=== PATIENT | female | born 1960 | race Caucasian/White ===

== ENCOUNTER 2019-11-24 11:50 | Outpatient (CLI) | payer MEDICARE, MEDICAID, SELFPAY ==
--- NOTE | ~2019-11-24 | CT_ITS ---
EXAMINATION: CT abdomen pelvis wo con EXAM DATE: 11/24/2019 12:13 INDICATION: Low abdominal pain. TECHNIQUE: Spiral CT of the abdomen and pelvis was performed without contrast. Axial, coronal and sag ittal images were reviewed. The dose-length product (DLP) for this examination was 1410.29 mGy-cm. The exposure was tailored according to patient size (auto mA exposure control), and iterative reconst ruction (ASIR) was used as additional dose reduction technique. There is no prior study for comparis on. FINDINGS: There is a left inferior calyceal 7 mm stone, right inferior calyceal 5 mm stone, additiona l couple of punctate other right kidney stones. Regions of bilateral renal cortical scarring and mild to moderate overall renal atrophy. Possible There is mild nonspecific fat stranding in the right presacral space of uncertain chronicity. The anupam lizette is anteverted and morphologically normal. The bladder is unremarkable. The liver, spleen, adre nal glands and pancreas are unremarkable. There are cholecystectomy clips. There is no retroperiton eal or pelvic lymphadenopathy. The appendix is not positively visualized. There is no pericecal inflammatory change to suggest appe ndicitis. There is small to moderate-sized gastroesophageal hiatal hernia. There is colonic fluid, correlate for diarrhea. No free intraperitoneal gas. The heart is normal in size. There are no pericardial or pleural effusions. The lung bases are unremarkable. Sacrum, sacroiliac joints, sacra l arcuate lines are intact. No osteoblastic or osteolytic lesions identified. IMPRESSION: 1. Bilateral nephrolithiasis, renal atrophy and scarring. 2. Mild nonspecific right presacral space fat stranding without adjacent abscess or underlying etiol ogy identified. Uncertain whether or not this is chronic. 3. Colonic fluid, diarrhea. 4. Gastroesophageal hiatal hernia. Reviewed, dictated and finalized at location B. IMPRESSION: 1. Bilateral nephrolithiasis, renal atrophy and scarring. 2. Mild nonspecific right presacral space fat stranding without adjacent absce ss or underlying etiology identified. Uncertain whether or not this is chronic. 3. Colonic fluid, diarrhea. 4. Gastroesophageal hiatal hernia.
[2019-11-24 13:42] LABS: Add Urine Microscopic? YES; Amorphous Sediment Urine Few; Appearance Urine Cloudy (Clear); Bacteria Urine Trace /hpf; Bilirubin Urine Negative (Negative); Blood Urine 1+ (Negative); Color Urine Yellow (Yellow); Glucose Urine UA Negative (Negative); Ketones Urine Negative (Negative); Leukocyte Esterase Ur 1+ LEU/UL (Negative); Mucus Urine Rare /lpf; Nitrate Urine Negative (Negative); Protein Urine Negative (Negative); Specific Grav Ur 1.012 (1.001-1.035); Squamous Epithelial Cell Urine Rare /hpf (Few); Urobilinogen Urine Negative mg/dL (<2.0)
== END 2019-11-24 11:51 | disposition home or self-care (01) ==
PROVIDERS: PCP Internal Medicine; Visit Provider Nurse Practitioner
DX: R10.30 Lower abdominal pain, unspecified (principal); R10.2 Pelvic and perineal pain; N20.0 Calculus of kidney; R19.7 Diarrhea, unspecified; K44.9 Diaphragmatic hernia without obstruction or gangrene
CPT/HCPCS: 74176; 81001

== ENCOUNTER 2020-05-01 18:05 | Outpatient (CLI) | payer MEDICARE, MEDICAID, SELFPAY ==
--- NOTE | ~2020-05-01 | XR_ITS ---
EXAMINATION: XR wrist LT min 3V DATE: 05/01/2020 18:43 INDICATION: Osteoarthritis with pain at the radial side of the carpus. TECHNIQUE: Posteroanterior, ulnar deviation, oblique, and lateral views of the left wrist were obtain ed. COMPARISON: none FINDINGS: Alignment is normal. No fracture. Severe osteoarthritis at the triscaphe joint. Mild osteoarthritis a t the first carpometacarpal, first metacarpophalangeal and first interphalangeal joints. IMPRESSION: 1. 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 Reviewed, dictated and finalized at location A.
== END 2020-05-01 18:06 | disposition home or self-care (01) ==
PROVIDERS: PCP Internal Medicine; Visit Provider Plastic Surgery
DX: M19.032 Primary osteoarthritis, left wrist (principal)
CPT/HCPCS: 73110

== ENCOUNTER 2020-05-28 00:17 | Outpatient (CLI) | payer MEDICARE, MEDICAID, SELFPAY ==
[2020-05-28 17:26] LABS: SARS-CoV-2 RNA PCR Negative
== END 2020-05-28 00:18 | disposition home or self-care (01) ==
LOC: ANHCOVIDDT 00:17
PROVIDERS: PCP Internal Medicine; Visit Provider Plastic Surgery
DX: Z01.812 Encounter for preprocedural laboratory examination (principal); Z20.828 Contact with and (suspected) exposure to other viral communicable diseases; G56.02 Carpal tunnel syndrome, left upper limb
CPT/HCPCS: 87635; C9803; U0003

== ENCOUNTER 2020-05-30 01:55 | Day surgery (SDC) | payer MEDICARE, MEDICAID, SELFPAY ==
[2020-05-27 09:11] VITALS: BMI 37.8
--- NOTE | 2020-05-30 07:00 | WPDHPUPDATE1 ---
History and Physical Update Update Date/Time: 05/30/20 07:00 History and Physical has been reviewed, including an updated exam of the patient. There are NO changes in the patient's condition. Risks, benefits, and alternatives have been discussed and questions answered. Patient agrees to proceed with procedure.
--- NOTE | 2020-05-30 07:01 | WPDHPUPDATE1 ---
History and Physical Update Update Date/Time: 05/30/20 07:01 History and Physical has been reviewed, including an updated exam of the patient. There are NO changes in the patient's condition. Risks, benefits, and alternatives have been discussed and questions answered. Patient agrees to proceed with procedure.
--- NOTE | 2020-05-30 08:16 | WPDANESEPPF ---
Anes - Initial Pre Proc Eval Procedure: Operation Date: 05/30/20 09:30 Proposed Procedures p Left Open Carpal Tunnel Release - Kodi Juarez MD Date/Time: 05/30/20 08:16 Surgeon: Kodi Juarez MD Pre Op Diagnosis: Left Carpal Tunnel Syndrome Patient Data Age: 59 Gender: F Height: 5 ft 4 in Weight: 99.79 kg Allergies Allergy/AdvReac Type Severity Reaction Status Date / Time levofloxacin Allergy Intermediate Hives Verified 05/27/20 09:12 Quinolones Allergy Unknown Hives Verified 05/27/20 10:48 Home Medications Medication Instructions Recorded Confirmed Type aripiprazole 10 mg tablet 10 mg PO DAILY 08/07/19 05/27/20 History betamethasone dipropionate 0.05 % 1 applic TOPICAL BID PRN 7 Days 08/07/19 05/27/20 Rx topical cream #15 gm lorazepam 0.5 mg tablet 0.5 mg PO DAILY PRN 08/07/19 05/27/20 History oxcarbazepine 300 mg tablet 300 mg PO BID 08/07/19 05/27/20 History polyethylene glycol 3350 17 gram 17 gm PO DAILY PRN 08/07/19 05/27/20 History oral powder packet sertraline 100 mg tablet 100 mg PO DAILY 08/07/19 05/27/20 History vitamin B complex 1 cap PO DAILY 08/07/19 05/27/20 History tamsulosin 0.4 mg capsule 0.4 mg PO DAILY #14 cap 11/24/19 05/27/20 Rx pravastatin 40 mg tablet 40 mg PO DAILY #90 tablet 11/28/19 05/27/20 Rx omeprazole 20 mg tablet,delayed 20 mg PO DAILY #90 tablet 01/02/20 05/27/20 Rx release clopidogrel 75 mg tablet 75 mg PO DAILY #90 tablet 02/13/20 05/27/20 Rx lisinopril 5 mg tablet 5 mg PO DAILY #90 tablet 03/18/20 05/27/20 Rx acetaminophen [Tylenol Extra 1,000 mg PO Q6H PRN 05/27/20 05/27/20 History Strength] lidocaine [Lidocaine Pain Relief] 1 patch TOPICAL DAILY PRN 05/27/20 05/27/20 History mv,Ca,ir,Cl-LU-zcn-gel-roberta-PAB 1 cap PO DAILY 05/27/20 05/27/20 History [Body, Hair, Skin and Nails] Patient hx anesthesia problems: none Family hx anesthesia problems: none PMFSH Past Medical History Medical History (Updated 05/30/20 @ 08:17 by Poncho Esposito MD) Carpal tunnel syndrome Cerebral palsy not affecting current episode of care DVT (deep venous thrombosis) Essential (primary) hypertension Hyperlipidemia Seizure disorder Traumatic brain injury Family History Family History Sibling Patient's brother is in good health Vascular disease Mother Breast cancer Social History Social History Smoking status: Never smoker Alcohol intake: never Spiritual care concerns: No Anes - Eval Final PreProcedure Day of Procedure 05/30/20 08:16 Patient weight: obese Heart: regular rate and rhythm Lungs: decreased breath sounds Airway: Mallampati scale class III Neurological: other (alert) Last oral intake: >/= 8 hours ASA classification: IV Emergent: no Anesthetic plan: proceed Anesthesia type and monitoring: general GIVS and standard monitoring Informed Consent: The patient's anesthetic plan and its attendant risks and benefits were discussed with the patient/family/POA. Questions were solicited and answers provided to the satisfaction of the patient/family/POA.
[2020-05-30 08:30] VITALS: BP 119/72; PULSE 81; RESP 20; TEMP 36.5; O2SAT 96
[2020-05-30] MEDS: LACTATED RINGERS 1,000 ML 30 ML IV CONT (08:45)
[2020-05-30] MEDS: LIDO 1%/EPINEPHRINE 1:100,000 20 ML VIAL 8 ML INFILTRATE (09:41)
[2020-05-30] MEDS: BACITRACIN OINTMENT 15 GM TUBE 1 APPLIC TOPICAL (10:12)
--- NOTE | 2020-05-30 10:18 | SUR.OPER ---
EBL:0cc
[2020-05-30 10:24] VITALS: BP 111/53; PULSE 78; RESP 15; TEMP 36.8; O2SAT 97
--- NOTE | 2020-05-30 10:31 | PM.OP ---
Procedure Note - Brief Procedure Note - Brief Date of procedure: 05/30/20 Pre-op diagnosis: Left Carpal Tunnel Syndrome Post-op diagnosis: same Procedure performed: L OCTR Anesthesia: MAC Surgeon: Kodi Juarez MD Estimated blood loss (mL): 2 Tourniquet time (min): 0 Drains: No Packing: No Pathology: none sent Complications: No immediate complications Condition: stable Disposition: same day
--- NOTE | 2020-05-30 10:33 | PM.PROC ---
Procedure Note - Detailed Date of procedure: 05/30/20 Pre-op diagnosis: Left Carpal Tunnel Syndrome Post-op diagnosis: same Procedure performed: Left open carpal tunnel release Description of procedure: The left upper extremity was marked at the wrist for the carpal tunnel release. The patient's IV has been placed on proximal forearm same side. She was taken to the operating room and placed supine on the operating table. A time-out was held and confirmed. The patient was given IV sedation. The markings were made for the incision. The site was infiltrated with 1% lidocaine with epinephrine. The tourniquet was not utilized. The incision was made as marked and dissection was carried through the subcutaneous tissue with blunt dissection. The palmar fascia carpal ligament were incised with a 15. Blade. Under 3 point retraction the ligament was divided distally and proximally to completely release it. No unusual anatomy was noted. The skin wound was closed with interrupted 5 0 nylon. A small bandage with Eliceo wrap was applied and she is discharged from the operating room in stable condition. She has a prescription for tramadol 50 mg number 10. She has instructions in wound care and follow-up. Surgeon: Kodi Juarez MD
[2020-05-30 10:55] VITALS: BP 111/53; PULSE 77; RESP 18; O2SAT 96
== END 2020-05-30 11:15 | disposition home or self-care (01) ==
PROVIDERS: PCP Internal Medicine; Visit Provider Plastic Surgery
PROC: (CPT 64721; principal; 2020-05-30 09:30)
DX: G56.02 Carpal tunnel syndrome, left upper limb (principal); M18.9 Osteoarthritis of first carpometacarpal joint, unspecified; G40.909 Epilepsy, unspecified, not intractable, without status epilepticus; I10 Essential (primary) hypertension; E78.5 Hyperlipidemia, unspecified; G80.9 Cerebral palsy, unspecified; K21.9 Gastro-esophageal reflux disease without esophagitis; Z86.73 Personal history of transient ischemic attack (TIA), and cerebral infarction without residual deficits; E66.01 Morbid (severe) obesity due to excess calories; Z68.37 Body mass index [BMI] 37.0-37.9, adult; Z79.02 Long term (current) use of antithrombotics/antiplatelets
CPT/HCPCS: 64721; A9270; J2250; J2370; J2405; J2704; J3010; J7120

== ENCOUNTER 2022-04-16 14:23 | Outpatient (CLI) | payer MEDICARE, MEDICAID, SELFPAY ==
[2022-04-16 18:59] LABS: Basophils Percent Auto 0.5 % (0.2-1.2); Eosinophils Absolute Auto 0.1 K/mm3 (0-0.3); Eosinophils Percent Auto 1.5 % (0-4.4); Hematocrit 37.5 % (37.0-47.0); Hemoglobin 11.9 g/dL (12.0-15.0); Immature Granulocyte Absolute 0.01 K/mm3 (0.00-0.031); Immature Granulocyte Percent A 0.2 % (0-0.5); Lymphocytes Absolute Auto 1.75 K/mm3 (0.9-3.2); Lymphocytes Percent Auto 30.1 % (18.3-44.2); Mean Corpuscular HGB Conc 31.7 g/dl (32-36); Mean Corpuscular Hemoglobin 28.5 pg (26-34); Mean Corpuscular Volume 89.7 fl (80-100); Mean Platelet Volume 8.8 fl (7.4-10.4); Monocytes Absolute Auto 0.6 K/mm3 (0.1-0.6); Neutrophils Absolute Auto 3.4 K/mm3 (1.3-6.7); Neutrophils Percent Auto 57.7 % (45.5-73.1); Platelet Count Result 263 k/mm3 (150-375); Red Blood Count 4.18 M/mm3 (4.2-5.4); Red Cell Distribution Width 13.3 % (11.5-14.5); White Blood Count 5.8 K/mm3 (4.5-10.0)
[2022-04-16 20:01] LABS: Vitamin D 25 Hydroxy 28.9 ng/mL
[2022-04-16 20:16] LABS: Alanine Aminotransferase 25 U/L (6-35); Albumin Level 4.4 g/dL (3.5-5.1); Alkaline Phosphatase 137 U/L (38-126); Anion Gap 8 mmol/L (8-16); Aspartate Amino Transferase 45 U/L (14-36); Bilirubin,Total 0.3 mg/dL (0.2-1.3); Blood Urea Nitrogen 22 mg/dL (7-17); Calcium 8.9 mg/dL (8.4-10.2); Carbon Dioxide 32 mmol/L (22-30); Chloride 100 mmol/L (98-107); Cholesterol 298 mg/dL (0-200); Estimated Glomerular Filt Rate > 60; Glucose 96 mg/dL (65-110); HDL Direct 95 mg/dL; Sodium 140 mmol/L (137-145); Triglycerides 146 mg/dL (<150)
[2022-04-16 20:27] LABS: LDL Cholesterol Direct 146 mg/dL
== END 2022-04-16 14:24 | disposition home or self-care (01) ==
PROVIDERS: PCP Internal Medicine; Visit Provider Nurse Practitioner
DX: E55.9 Vitamin D deficiency, unspecified (principal); Z13.29 Encounter for screening for other suspected endocrine disorder; Z13.220 Encounter for screening for lipoid disorders; Z51.81 Encounter for therapeutic drug level monitoring; Z79.899 Other long term (current) drug therapy
CPT/HCPCS: 36415; 80053; 80061; 82306; 85025